=== PATIENT | male | born 1940 | race Caucasian/White ===

== ENCOUNTER → 2016-08-12 | Outpatient (CLI) | payer MEDICARE ==
[~2016-08-12] MED LIST: AGRYLIN0.5 MG PO; AUGMENTIN 875875 MG PO; AVODART0.5 MG PO; CARDIZEM LA240 MG PO; CARDIZEM LA300 MG PO; COUMADIN10 MG PO; DIGOXIN0.25 MG PO; FLAGYL500 MG PO; LASIX20 MG PO; MIRALAX POWDER17 G1 PO; REQUIP0.5 MG PO; SINEMET 25-1001 TAB PO; VICODIN 5/500 505 MG PO; ZOCOR20 MG PO; ZOFRAN ODT4 MG SL
[2016-08-12 12:51] LABS: BILIRUBIN NEGATIVE (NEGATIVE); BLOOD NEGATIVE (NEGATIVE); CLARITY SL CLOUDY (CLEAR); COLOR YELLOW (YELLOW); GLUCOSE NEGATIVE (NEGATIVE); KETONE NEGATIVE (NEGATIVE); LEUKO ESTERASE NEGATIVE (NEGATIVE); NITRITE NEGATIVE (NEGATIVE); PROTEIN NEGATIVE (NEGATIVE); SPECIFIC GRAVITY 1.015 (1.005-1.030); UROBILINOGEN 0.2 E.U./dl (0.2-1.0)
[2016-08-12 12:52] LABS: BASO % 0.5 % (0.0-1.0); EOS % 0.2 % (1.0-4.0); HEMATOCRIT 40.6 % (42.0-52.0); HEMOGLOBIN 12.8 g/dl (14.0-18.0); LYMPH # 0.8 10*3/uL (1.3-4.4); LYMPH % 18.5 % (27.0-41.0); MEAN CORPUSCULAR HGB 32.5 pg (27.0-31.0); MEAN CORPUSCULAR HGB CONC 31.5 g/dl (33.0-37.0); MEAN PLATELET VOLUME 9.7 fl (9.6-12.3); MONO # 0.3 10*3/uL (0.1-1.0); MONO % 7.8 % (3.0-9.0); NEUT # 3.2 10*3/uL (2.3-7.9); NEUT % 72.8 % (47.0-73.0); PLATELET COUNT AUTOMATED 639 10*3/uL (130-400); RED BLOOD COUNT 3.94 10*6/uL (4.50-5.90); RED CELL DISTRI WIDTH 14.1 % (0-14.5); WHITE BLOOD COUNT 4.4 10*3/uL (4.8-10.8)
[2016-08-12 13:00] LABS: BACTERIA TRACE; WBC 0-2 wbc/hpf (0-5)
[2016-08-12 13:18] LABS: INTERNATIONAL NORM RATIO 2.3 (2.0-3.5); PROTHROMBIN TIME 25.3 SECONDS (9.0-12.4)
[2016-08-12 13:21] LABS: ALBUMIN 3.8 gm/dl (3.1-4.5); ALKALINE PHOSPHATASE 85 U/L (45-117); BILIRUBIN, DIRECT 0.2 mg/dL (0.0-0.2); BILIRUBIN, TOTAL 0.9 mg/dl (0.2-1.0); BUN 15 mg/dl (7-24); CARBON DIOXIDE 29 mmol/L (21-32); CHLORIDE 107 mmol/L (98-107); CHOLESTEROL 137 mg/dL (<200); EST GLOM FILT AFRICAN AMERICAN > 60 ml/min; GLUCOSE 91 mg/dL (65-99); HDL CHOLESTEROL 63 mg/dl (40-60); LDL CHOLESTEROL 64 mg/dL (9-159); PHOSPHOROUS 2.8 mg/dL (2.5-4.9); POTASSIUM 4.6 mmol/L (3.5-5.1); SGOT/AST 15 IU/L (3-35); SGPT/ALT 8 U/L (12-78); SODIUM 145 mmol/L (136-145); TOTAL PROTEIN 6.7 gm/dL (6.4-8.2); TRIGLYCERIDES 51 mg/dl (<150); VLDL CHOLESTEROL 10 mg/dL (6-40)
== END | disposition home or self-care (01) ==
LOC: LAB 12:33
PROVIDERS: Internal Medicine
DX: C64.2 Malignant neoplasm of left kidney, except renal pelvis (principal); I25.10 Atherosclerotic heart disease of native coronary artery without angina pectoris; I48.2 Chronic atrial fibrillation

== ENCOUNTER → 2017-06-05 | Outpatient (CLI) | payer MEDICARE ==
[2017-06-05 13:34] LABS: BASO % 0.4 % (0.0-1.0); EOS % 0.2 % (1.0-4.0); HEMOGLOBIN 12.3 g/dl (14.0-18.0); LYMPH % 18.8 % (27.0-41.0); MEAN CELL VOLUME 98.2 fl (80.0-94.0); MEAN CORPUSCULAR HGB CONC 31.5 g/dl (33.0-37.0); MEAN PLATELET VOLUME 9.6 fl (9.6-12.3); MONO # 0.4 10*3/uL (0.1-1.0); MONO % 7.9 % (3.0-9.0); NEUT # 3.8 10*3/uL (2.3-7.9); NEUT % 72.3 % (47.0-73.0); PLATELET COUNT AUTOMATED 955 10*3/uL (130-400); RED BLOOD COUNT 3.97 10*6/uL (4.50-5.90); RED CELL DISTRI WIDTH 15.9 % (0-14.5); WHITE BLOOD COUNT 5.2 10*3/uL (4.8-10.8)
== END | disposition home or self-care (01) ==
LOC: LAB 13:15
PROVIDERS: Internal Medicine Hematology & Oncology
DX: D47.3 Essential (hemorrhagic) thrombocythemia (principal); D75.9 Disease of blood and blood-forming organs, unspecified

== ENCOUNTER → 2017-07-17 | Outpatient (CLI) | payer MEDICARE ==
[2017-07-17 10:43] LABS: BASO % 0.2 % (0.0-1.0); EOS % 0.2 % (1.0-4.0); HEMATOCRIT 38.3 % (42.0-52.0); HEMOGLOBIN 12.6 g/dl (14.0-18.0); LYMPH % 17.4 % (27.0-41.0); MEAN CELL VOLUME 97.5 fl (80.0-94.0); MEAN CORPUSCULAR HGB 32.1 pg (27.0-31.0); MEAN CORPUSCULAR HGB CONC 32.9 g/dl (33.0-37.0); MEAN PLATELET VOLUME 9.7 fl (9.6-12.3); MONO # 0.4 10*3/uL (0.1-1.0); NEUT # 4.3 10*3/uL (2.3-7.9); NEUT % 74.8 % (47.0-73.0); PLATELET COUNT AUTOMATED 917 10*3/uL (130-400); RED BLOOD COUNT 3.93 10*6/uL (4.50-5.90); RED CELL DISTRI WIDTH 15.1 % (0-14.5); WHITE BLOOD COUNT 5.7 10*3/uL (4.8-10.8)
== END | disposition home or self-care (01) ==
LOC: LAB 10:20
PROVIDERS: Internal Medicine Hematology & Oncology
DX: D47.3 Essential (hemorrhagic) thrombocythemia (principal)

== ENCOUNTER → 2017-07-21 | Outpatient (CLI) | payer MEDICARE ==
[2017-07-21 12:04] LABS: BASO % 0.2 % (0.0-1.0); EOS % 0.7 % (1.0-4.0); HEMATOCRIT 39.2 % (42.0-52.0); HEMOGLOBIN 12.7 g/dl (14.0-18.0); LYMPH # 0.6 10*3/uL (1.3-4.4); MEAN CELL VOLUME 98.5 fl (80.0-94.0); MEAN CORPUSCULAR HGB 31.9 pg (27.0-31.0); MEAN CORPUSCULAR HGB CONC 32.4 g/dl (33.0-37.0); MEAN PLATELET VOLUME 9.8 fl (9.6-12.3); MONO # 0.3 10*3/uL (0.1-1.0); MONO % 6.6 % (3.0-9.0); NEUT # 3.6 10*3/uL (2.3-7.9); NEUT % 78.1 % (47.0-73.0); PLATELET COUNT AUTOMATED 918 10*3/uL (130-400); RED BLOOD COUNT 3.98 10*6/uL (4.50-5.90); WHITE BLOOD COUNT 4.6 10*3/uL (4.8-10.8)
== END | disposition home or self-care (01) ==
LOC: LAB 11:26
PROVIDERS: Internal Medicine Hematology & Oncology
DX: D47.3 Essential (hemorrhagic) thrombocythemia (principal)

== ENCOUNTER → 2017-08-28 | Outpatient (CLI) | payer MEDICARE ==
[2017-08-28 13:09] LABS: BASO % 0.4 % (0.0-1.0); EOS % 0.4 % (1.0-4.0); HEMATOCRIT 37.5 % (42.0-52.0); HEMOGLOBIN 12.3 g/dl (14.0-18.0); LYMPH # 0.9 10*3/uL (1.3-4.4); MEAN CORPUSCULAR HGB 32.8 pg (27.0-31.0); MEAN CORPUSCULAR HGB CONC 32.8 g/dl (33.0-37.0); MEAN PLATELET VOLUME 9.8 fl (9.6-12.3); MONO # 0.5 10*3/uL (0.1-1.0); MONO % 9.3 % (3.0-9.0); NEUT % 73.4 % (47.0-73.0); PLATELET COUNT AUTOMATED 794 10*3/uL (130-400); RED BLOOD COUNT 3.75 10*6/uL (4.50-5.90); RED CELL DISTRI WIDTH 15.1 % (0-14.5); WHITE BLOOD COUNT 5.5 10*3/uL (4.8-10.8)
== END | disposition home or self-care (01) ==
LOC: LAB 12:54
PROVIDERS: Internal Medicine Hematology & Oncology
DX: D47.3 Essential (hemorrhagic) thrombocythemia (principal)